=== PATIENT | female | born 2005 | race Asian ===

== ENCOUNTER 2025-05-06 20:46 | Emergency (ER) | payer OTHER ==
[~2025-05-06] VITALS: Ht 157.5 cm; Wt 53.1 kg
[2025-05-06 20:54] VITALS: PULSE 74; RESP 18; TEMP 97.6
[2025-05-06] MEDS ORDERED: MACROBID 100 M100 MG PO (21:29)
[2025-05-06 21:40] VITALS: BP 119/69; PULSE 74; RESP 18; TEMP 97.6; O2SAT 98
== END 2025-05-06 21:40 | disposition home or self-care (01) ==
LOC: FSED 20:52
DX: N93.9 Abnormal uterine and vaginal bleeding, unspecified (principal); N39.0 Urinary tract infection, site not specified
CPT/HCPCS: 81003; 81025; 99282